=== PATIENT | female | born 1970 | race Caucasian/White ===

== ENCOUNTER 2019-05-02 15:53 | Outpatient (CLI) | payer MEDICARE, MEDICAID ==
--- NOTE | 2019-05-02 16:24 | MMO ---
Bilateral MAMMO Bilat Screen [facility]. CLINICAL HISTORY: Patient is 48 years old and is seen for screening. VIEWS: The views performed were: bilateral craniocaudal with tomosynthesis and bilateral mediolateral oblique with tomosynthesis. This study has been interpreted with the assistance of computer-aided detection. MAMMOGRAM FINDINGS: The breasts are almost entirely fat. There are no suspicious masses, suspicious calcifications, or new areas of architectural distortion. IMPRESSION: THERE IS NO MAMMOGRAPHIC EVIDENCE OF MALIGNANCY. A ROUTINE FOLLOW-UP MAMMOGRAM IN 1 YEAR IS RECOMMENDED. THE RESULTS OF THIS EXAM WERE SENT TO THE PATIENT. ACR BI-RADS Category 1 - Negative MAMMOGRAPHY NOTE: 1. A negative mammogram report should not delay a biopsy if a dominant of clinically suspicious mass is present. 2. Approximately 10% to 15% of breast cancers are not detected by mammography. 3. Adenosis and dense breasts may obscure an underlying neoplasm. Reported by: CORNELL VALENTINO MD Electonically Signed: [id number]
== END 2019-05-02 15:54 | disposition home or self-care (01) ==
LOC: BICMAMMO 15:53
PROVIDERS: ATTEND Family Medicine
DX: Z12.31 Encounter for screening mammogram for malignant neoplasm of breast (principal)
CPT/HCPCS: 77063; 77067

== ENCOUNTER 2019-06-27 02:35 | Inpatient (IN) | payer MEDICARE, MEDICAID ==
[2019-06-27] MEDS ORDERED: Fentanyl 100 MCG/2 ML VIAL ONE (04:19)
[2019-06-27] MEDS ORDERED: Ondansetron PF 4 MG/2 ML Vial IVP PRN ×2 (05:37→09:16)
[2019-06-27] MEDS ORDERED: Ondansetron ODT 4 MG TAB SL PRN (05:37)
[2019-06-27] MEDS ORDERED: Fentanyl 100 MCG/2 ML VIAL SLOW IVP PRN (05:38)
[2019-06-27] MEDS ORDERED: Hydrocortisone Sod Succ/PF 100 mg/2 ml Vial IVP SCH (07:00)
[2019-06-27] MEDS: Sodium Chloride 0.9% 1,000 ML IV SCH ×2 (07:17→15:14)
[2019-06-27 07:36] VITALS: BMI 23.0
[2019-06-27] MEDS ORDERED: Fleet Enema 133 ML BOT FS SCH (08:45)
[2019-06-27] MEDS ORDERED: Magnesium Citrate 300 ML BOT PO SCH (09:30)
[2019-06-27] MEDS ORDERED: D5 1/2 NS w/20 mEq KCL 1,000 ML IV SCH (09:30)
--- NOTE | 2019-06-27 10:54 | HP ---
CHIEF COMPLAINT: Possible bowel obstruction, history of gastric bypass. HISTORY OF PRESENT ILLNESS: The patient is a 48-year-old white female with an extensive psychiatric history. She has a history of laparoscopic gastric bypass in 2003. She presented to the [facility] last night because she was "not feeling right." She tells me she had not had a bowel movement about a week and a half, but this is not uncommon for her. She did vomit a couple of days ago. She denies abdominal pain. Upon my arrival into her room, her only complaint is her nasogastric tube was severely bothering her. Late at night, she had some plane abdominal imaging potentially revealing findings consistent with bowel obstruction. CT scan was obtained, which also mentioned dilated loops of bowel, potentially consistent with obstruction. She is noted to have a large volume of retained stool in her colon. When I was contacted at 3:30 this morning, she was presented to me as a gastric bypass patient with a bowel obstruction and I therefore agreed to admission to my service. PAST MEDICAL HISTORY: 1. History of morbid obesity. 2. Depression. 3. Anxiety. 4. History of tobacco abuse. 5. She believes she has bipolar disorder. She has a sleep abnormality, possible insomnia, history of suicide attempt. PAST SURGICAL HISTORY: 1. She has had 4 back surgeries, apparently performed here in town at [facility]. 2. She has had 2 spine stimulators placed. 3. She had a laparoscopic gastric bypass in 2003 in [place]. 4. She had a laparoscopic cholecystectomy in 1998. 5. She had a laparotomy for bowel perforation in 2007. She is not certain what was perforated or why. CURRENT MEDICATIONS: Include; 1. Temazepam. 2. Lyrica. 3. Seroquel. 4. Pristiq. 5. Wellbutrin. 6. Ranitidine. 7. Loratadine. 8. Fluticasone. 9. Black Cohosh. She gets her medical care in [place] from Dr. Street and she sees a psychiatrist in [place]. She also takes Tylenol with Codeine No. 4 and tells me she takes three of these per day. ALLERGIES: ALTHOUGH THERE IS A LONGER LIST, SHE TELLS THE ONLY MEDICATION SHE IS ALLERGIC TO IS REGLAN (METOCLOPRAMIDE). PERSONAL AND SOCIAL HISTORY: She is single with one child. She lives with her mother and father in [place]. She formerly smoked but tells me she quit in 2013. She does not drink alcohol. 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 She is disabled. REVIEW OF SYSTEMS: Otherwise, unremarkable. FAMILY HISTORY: Noncontributory. PHYSICAL EXAMINATION: VITAL SIGNS: Temperature is 98, pulse is 83, and blood pressure is 92/54. GENERAL: She is a well-developed, well-nourished, pleasant white female, who is only in distress associated with a nasogastric tube. She is alert and oriented x3 and cooperative. She is somewhat anxious/agitated, but she did much better after I removed her nasogastric tube. HEAD, EYES, EARS, NOSE, AND THROAT: Unremarkable. NECK: Supple. LUNGS: Clear to auscultation. CARDIAC: Regular rate and rhythm without murmur. ABDOMEN: Nondistended and surprisingly soft and nontender. She has normoactive bowel sounds. Well-healed midline incision. Rectal examination reveals a large volume of soft stool within the rectum. EXTREMITIES: Unremarkable. LABORATORY DATA: Her CBC from last night shows a white blood cell count of 5, hemoglobin of 12, normal differential. Chemistry profile shows no significant electrolyte abnormalities. She does have transaminitis and I note that she has a history of this before. Her AST and ALT and alkaline phosphatase are all elevated. Her total bilirubin is normal. I am not certain what her hepatitis status is. ASSESSMENT AND PLAN: The patient almost certainly does not have a small bowel obstruction based on her examination and findings. I would suspect that she is severely constipated. I will start a regimen of aggressive enemas and will give her a bottle of magnesium citrate and hopefully, she will be able to tolerate this. She is encouraged to ambulate and is already doing so. I do not think the nasogastric tube is necessary. I therefore removed it. May consider small bowel follow-through depending upon her course today. Job ID: [id number]
--- NOTE | 2019-06-27 13:43 | RAD ---
KUB: 06/27/2019 COMPARISON: 03/23/2018 HISTORY: Assess contrast location from prior exam FINDINGS: There is a generator overlying the left midabdomen posteriorly with an associated lead exte nding into the chest on the left. There is a generator posteriorly on the right with associated dorsal column stimulators terminating over the mid thoracic spine. Postoperative clips are noted in t he right upper quadrant, left upper quadrant, and left lower quadrant. There is significant stool within the colon from the level of the cecum to the level of the proximal descending colon. This stil l is relatively hyperdense, which may signify a mild degree of residual contrast media. There is no significant residual contrast media within the small bowel. There are multilevel postoperative pedicle screws at L4, L5, and S1. IMPRESSION: No residual contrast media within the small bowel is appreciated. Possible residual contr ast media within the colon associated with dense stool.
[2019-06-27] MEDS: Fleet Enema 133 ML BOT FS SCH ×3 (15:12→21:48)
[2019-06-27] MEDS ORDERED: buPROPion HCl 100 MG TAB PO SCH (16:15)
[2019-06-27] MEDS ORDERED: Acetaminophen 500 MG TAB PO PRN (19:29)
[2019-06-27] MEDS: Pregabalin 50 MG CAP PO SCH (20:36)
[2019-06-27] MEDS: Temazepam 15 MG CAP PO SCH (20:37)
[2019-06-27] MEDS: buPROPion HCl 100 MG TAB PO SCH (20:37)
[2019-06-27] MEDS: tiZANidine HCl 4 MG TAB PO SCH (20:37)
[2019-06-27] MEDS ORDERED: QUEtiapine Fumarate ER 150 MG TAB PO SCH (21:00)
[2019-06-27] MEDS ORDERED: VALBENAZINE TOSYLATE 80 MG PO SCH (21:00)
[2019-06-27] MEDS ORDERED: SILENOR 6 MG PO SCH (21:00)
[2019-06-27] MEDS ORDERED: Famotidine 20 MG TAB PO SCH (21:00)
[2019-06-27] MEDS: QUEtiapine Fumarate ER 50 MG TAB PO SCH (23:09)
[2019-06-27] MEDS ORDERED: QUEtiapine Fumarate ER 50 MG TAB PO SCH (23:15)
[2019-06-28] MEDS: Fleet Enema 133 ML BOT FS SCH ×6 (00:10→21:55)
[2019-06-28] MEDS: buPROPion HCl 100 MG TAB PO SCH ×3 (08:57→21:52)
[2019-06-28] MEDS: Pregabalin 50 MG CAP PO SCH ×2 (08:57→21:53)
--- NOTE | 2019-06-28 10:00 | PRG ---
DATE OF SERVICE: 06/28/2019 SUBJECTIVE: Ms. Gonzalez feels better. She is tolerating the clear liquids. She has had multiple bowel movements. She turned down the last enema. OBJECTIVE: VITAL SIGNS: She is afebrile. Vital signs are stable. ABDOMEN: Soft, nontender, nondistended. ASSESSMENT: Cecal and colon impaction. Doing better after enemas and magnesium citrate. PLAN: Switch over to MiraLAX. Advance to full liquid diet. Home tomorrow if still doing well. Job ID: [id number]
[2019-06-28] MEDS ORDERED: Polyethylene Glycol 3350 17 GM Packet PO SCH (10:30)
[2019-06-28] MEDS ORDERED: Thiamine 100 MG TAB PO SCH (12:00)
[2019-06-28 13:22] LABS: Vitamin D, 25 Hydroxy 9.4 ng/ml (> 30.0)
[2019-06-28] MEDS: tiZANidine HCl 4 MG TAB PO SCH (21:52)
[2019-06-28] MEDS: Temazepam 15 MG CAP PO SCH (21:53)
[2019-06-28] MEDS: QUEtiapine Fumarate ER 50 MG TAB PO SCH (21:54)
[2019-06-29] MEDS: Fleet Enema 133 ML BOT FS SCH ×4 (00:14→14:32)
--- NOTE | 2019-06-29 08:43 | DIS ---
DATE OF ADMISSION: 06/27/2019 DATE OF DISCHARGE: 06/29/2019 ADMITTED DIAGNOSES: 1. Fecal impaction. 2. History of gastric bypass. DISCHARGE DIAGNOSES: 1. Fecal impaction. 2. History of gastric bypass. 3. Vitamin D deficiency. PROCEDURES: None. CONDITION ON DISCHARGE: Improved. STAFF: Reza Diaz MD. FOLLOWUP: She is to follow up with Dr. Diaz in 2 weeks to follow up on lab results. BRIEF HISTORY: The patient was admitted with nausea, no abdominal pain, found to have cecal and fecal impaction. She had some laxatives done and enemas, and she felt better. She was given oral thiamin. Her thiamine level was checked, but that is pending at the time of discharge. Her vitamin D is very low. Her vitamin B12 was normal. She is discharged home. She says she will take a multivitamin as an outpatient. She is to see Dr. Diaz back to follow up on her labs. Her vitamin D is low. I sent her over a prescription for cholecalciferol to be taken 50,000 units once a week for three months, that was sent over to [facility]. She will return to see Dr. Diaz in 2 weeks. Job ID: [id number]
[2019-06-29] MEDS ORDERED: Polyethylene Glycol 3350 17 GM Packet PO SCH (09:00)
[2019-06-29] MEDS ORDERED: Bisacodyl 10 MG SUPP PR SCH (09:00)
[2019-06-29] MEDS: buPROPion HCl 100 MG TAB PO SCH (09:35)
[2019-06-29] MEDS: Pregabalin 50 MG CAP PO SCH (09:35)
[2019-06-29 11:56] VITALS: BP 102/69; TEMP 98.6
== END 2019-06-29 15:20 | disposition home or self-care (01) | DRG 390 ==
LOC: ERS 02:35 → SURG A 03:38
PROVIDERS: ADMIT Specialist; ATTEND Specialist
DX: K56.41 Fecal impaction (principal); E55.9 Vitamin D deficiency, unspecified; F41.9 Anxiety disorder, unspecified; F31.9 Bipolar disorder, unspecified; F43.10 Post-traumatic stress disorder, unspecified; F60.3 Borderline personality disorder; Z98.84 Bariatric surgery status; Z90.49 Acquired absence of other specified parts of digestive tract; Z88.8 Allergy status to other drugs, medicaments and biological substances; Z88.5 Allergy status to narcotic agent; Z79.899 Other long term (current) drug therapy; Z79.891 Long term (current) use of opiate analgesic
CPT/HCPCS: 36415; 74018; 82306; 82607; 84425; 96374; J1720; J2405; J3010

== ENCOUNTER 2022-01-28 21:35 | Inpatient (IN) | payer MEDICARE, MEDICAID ==
[2022-01-28 21:41] VITALS: BMI 23.8
[2022-01-28] MEDS ORDERED: Albuterol 200 PUFF (6.7GM INHALER) INH PRN (21:45)
[2022-01-28] MEDS ORDERED: Ondansetron PF 4 MG/2 ML Vial IVP PRN (21:45)
[2022-01-28] MEDS ORDERED: Ondansetron ODT 4 MG TAB SL PRN (21:45)
[2022-01-29] MEDS ORDERED: Ondansetron PF 4 MG/2 ML Vial IVP PRN (02:29)
[2022-01-29] MEDS ORDERED: Ondansetron ODT 4 MG TAB SL PRN (02:30)
[2022-01-29] MEDS ORDERED: Albuterol 200 PUFF (6.7GM INHALER) INH PRN ×2 (02:30→08:46)
[2022-01-29] MEDS ORDERED: Acetaminophen 325 MG TAB PO PRN (02:37)
[2022-01-29] MEDS ORDERED: Albuterol 200 PUFF (6.7GM INHALER) INH SCH ×2 (07:00)
[2022-01-29] MEDS ORDERED: Ondansetron ODT 4 MG TAB PO PRN (08:46)
[2022-01-29] MEDS ORDERED: hydrALAZINE 20 MG/ML VIAL SLOW IVP PRN (08:46)
[2022-01-29] MEDS ORDERED: Famotidine 20 MG TAB PO SCH (09:00)
[2022-01-29] MEDS ORDERED: [UNRECOGNIZED DRUG - OTHER] PO PRN (09:17)
[2022-01-29] MEDS ORDERED: ACETAMINOPHEN WITH CODEINE PO PRN (09:17)
[2022-01-29] MEDS: Enoxaparin Sodium 40 MG/0.4 ML SYRINGE SC SCH (09:39)
[2022-01-29] MEDS: Sodium Chloride 0.9% 1,000 ML IV SCH ×2 (09:39→20:34)
[2022-01-29] MEDS: Ascorbic Acid 500 mg Chewable Tablet PO SCH (09:40)
[2022-01-29] MEDS: Venlafaxine HCl XR 150 MG CAP PO SCH (09:40)
[2022-01-29] MEDS: Dexamethasone 10 MG/ML VIAL SLOW IVP SCH (09:40)
[2022-01-29] MEDS: Cholecalciferol (Vitamin D3) 400 UNITS TAB PO SCH (09:41)
[2022-01-29] MEDS: Zinc Sulfate 220 MG CAP PO SCH (09:41)
[2022-01-29] MEDS: Pregabalin 25 MG CAP PO SCH ×2 (09:41→20:30)
[2022-01-29 09:43] LABS: ALT (SGPT) 12 U/L (8-55); AST (SGOT) 14 U/L (5-34); Albumin 3.2 g/dL (3.5-5.0); Alkaline Phosphatase 67 U/L (40-110); Bilirubin, Direct 0.1 mg/dL (0.1-0.3); Bilirubin, Total Less than 0.2 mg/dL (0.2-1.2); Protein, Total 5.6 g/dL (6.0-8.3)
[2022-01-29] MEDS: Acetaminophen/Codeine 30-300mg Tablet PO PRN ×2 (09:48→14:08)
[2022-01-29] MEDS ORDERED: Non-Formulary Item 1 EACH (Desvenlafaxine [Desvenlafaxine Er] 100 MG Tab.Er.24h) PO SCH (10:00)
[2022-01-29] MEDS ORDERED: REMDESIVIR 200 MG in Sodium Chloride 0.9% 250 ML 210 ML IV SCH (11:00)
[2022-01-29] MEDS: Temazepam 15 MG CAP PO SCH (20:31)
[2022-01-29] MEDS: Benzonatate 100 MG CAP PO PRN (20:31)
[2022-01-29] MEDS: Acetaminophen 500 MG TAB PO PRN (20:31)
[2022-01-29] MEDS ORDERED: Temazepam 15 MG CAP PO SCH (21:00)
[2022-01-30] MEDS: Amitriptyline HCl 25 MG TAB PO SCH ×3 (08:16→19:45)
[2022-01-30] MEDS: REMDESIVIR 100 MG in Sodium Chloride 0.9% 250 ML 230 ML IV SCH (08:16)
[2022-01-30] MEDS: Enoxaparin Sodium 40 MG/0.4 ML SYRINGE SC SCH (08:16)
[2022-01-30] MEDS: Venlafaxine HCl XR 150 MG CAP PO SCH (08:16)
[2022-01-30] MEDS: Ascorbic Acid 500 mg Chewable Tablet PO SCH (08:16)
[2022-01-30] MEDS: Cholecalciferol (Vitamin D3) 400 UNITS TAB PO SCH (08:17)
[2022-01-30] MEDS: Zinc Sulfate 220 MG CAP PO SCH (08:17)
[2022-01-30] MEDS: Pregabalin 50 MG CAP PO SCH ×2 (08:17→19:45)
[2022-01-30] MEDS: Benzonatate 100 MG CAP PO PRN (08:17)
[2022-01-30] MEDS: Acetaminophen/Codeine 30-300mg Tablet PO PRN ×2 (08:17→13:33)
[2022-01-30] MEDS: Dexamethasone 10 MG/ML VIAL SLOW IVP SCH (08:18)
[2022-01-30 10:23] LABS: ALT (SGPT) 11 U/L (8-55); AST (SGOT) 18 U/L (5-34); Albumin 3.4 g/dL (3.5-5.0); Alkaline Phosphatase 71 U/L (40-110); Anion Gap 14 mmol/L (10-20); BUN (Urea Nitrogen) 6 mg/dL (9.8-20.1); Bilirubin, Direct 0.1 mg/dL (0.1-0.3); Bilirubin, Total Less than 0.2 mg/dL (0.2-1.2); Calc. Creatinine Clearance 105 mL/min (70-130); Calcium 8.1 mg/dL (7.8-10.44); Carbon Dioxide 18 mmol/L (22-29); Chloride 108 mmol/L (98-107); Globulin 2.6 g/dL (2.4-3.5); Glucose 93 mg/dL (70-105); Potassium 3.3 mmol/L (3.5-5.1); Sodium 137 mmol/L (136-145)
[2022-01-30] MEDS: Ondansetron PF 4 MG/2 ML Vial IVP PRN (10:28)
[2022-01-30 11:03] LABS: #Eosinphils 0.1 thou/uL (0.0-0.7); #Lymphocytes 1.3 thou/uL (1.20-3.40); #Monocytes 0.4 thou/uL (0.11-0.59); #Neutrophils 3.1 thou/uL (1.40-6.50); %Basophils 0.5 % (0.0-1.0); %Lymphocytes 26.8 % (21.0-51.0); %Monocytes 7.3 % (0.0-10.0); %Neutrophils 63.5 % (42.0-75.0); Hemoglobin 12.3 g/dL (12.0-16.0); MDiff Complete? YES; Macrocytosis SLIGHT = 6-15 cells (100X) (0-5/hpf); Mean Corpuscular HGB CONC 32.3 g/dL (32.0-36.0); Mean Corpuscular Hemoglobin 34.1 pg (27.0-31.0); Mean Platelet Volume 8.7 fL (7.4-10.4); Platelet Count 131 thou/uL (130-400); Platelet Morphology Comment Appears Adequate; RBC Distribution Width 12.1 % (11.5-14.5); Red Blood Cell (RBC) Count 3.59 mill/uL (4.20-5.40); White Blood Cell (WBC) Count 4.9 thou/uL (4.8-10.8)
[2022-01-30] MEDS: diphenhydrAMINE 25 MG CAP PO PRN (16:21)
[2022-01-30] MEDS ORDERED: Potassium Chloride 20 MEQ TAB PO SCH (16:30)
[2022-01-30] MEDS: Temazepam 15 MG CAP PO SCH (19:44)
[2022-01-30] MEDS: Acetaminophen 500 MG TAB PO PRN (19:45)
[2022-01-31 06:31] LABS: #Eosinphils 0.1 thou/uL (0.0-0.7); #Lymphocytes 2.5 thou/uL (1.20-3.40); #Monocytes 0.7 thou/uL (0.11-0.59); #Neutrophils 1.7 thou/uL (1.40-6.50); %Basophils 0.9 % (0.0-1.0); %Eosinophils 2.4 % (0.0-10.0); %Lymphocytes 49.1 % (21.0-51.0); %Monocytes 14.2 % (0.0-10.0); %Neutrophils 33.4 % (42.0-75.0); Hemoglobin 11.6 g/dL (12.0-16.0); Mean Corpuscular HGB CONC 33.4 g/dL (32.0-36.0); Mean Corpuscular Hemoglobin 34.9 pg (27.0-31.0); Mean Platelet Volume 8.9 fL (7.4-10.4); Platelet Count 137 thou/uL (130-400); RBC Distribution Width 11.9 % (11.5-14.5); Red Blood Cell (RBC) Count 3.34 mill/uL (4.20-5.40); White Blood Cell (WBC) Count 5.1 thou/uL (4.8-10.8)
[2022-01-31 06:50] LABS: ALT (SGPT) 10 U/L (8-55); AST (SGOT) 15 U/L (5-34); Albumin 3.3 g/dL (3.5-5.0); Alkaline Phosphatase 62 U/L (40-110); Anion Gap 12 mmol/L (10-20); BUN (Urea Nitrogen) 11 mg/dL (9.8-20.1); Bilirubin, Direct 0.1 mg/dL (0.1-0.3); Bilirubin, Total Less than 0.2 mg/dL (0.2-1.2); Calc. Creatinine Clearance 89 mL/min (70-130); Calcium 8.3 mg/dL (7.8-10.44); Carbon Dioxide 20 mmol/L (22-29); Chloride 112 mmol/L (98-107); Glucose 85 mg/dL (70-105); Potassium 3.5 mmol/L (3.5-5.1); Protein, Total 5.8 g/dL (6.0-8.3); Sodium 140 mmol/L (136-145)
[2022-01-31] MEDS: Pregabalin 50 MG CAP PO SCH ×2 (09:50→20:02)
[2022-01-31] MEDS: Cholecalciferol (Vitamin D3) 400 UNITS TAB PO SCH (09:50)
[2022-01-31] MEDS: Ascorbic Acid 500 mg Chewable Tablet PO SCH (09:50)
[2022-01-31] MEDS: Venlafaxine HCl XR 150 MG CAP PO SCH (09:50)
[2022-01-31] MEDS: Enoxaparin Sodium 40 MG/0.4 ML SYRINGE SC SCH (09:51)
[2022-01-31] MEDS: Zinc Sulfate 220 MG CAP PO SCH (09:51)
[2022-01-31] MEDS: REMDESIVIR 100 MG in Sodium Chloride 0.9% 250 ML 230 ML IV SCH (09:51)
[2022-01-31] MEDS: Acetaminophen/Codeine 30-300mg Tablet PO PRN ×2 (10:01→17:42)
[2022-01-31] MEDS: Dexamethasone 10 MG/ML VIAL SLOW IVP SCH (10:01)
[2022-01-31] MEDS: Ondansetron PF 4 MG/2 ML Vial IVP PRN (17:42)
[2022-01-31] MEDS: Temazepam 15 MG CAP PO SCH (20:01)
[2022-01-31] MEDS: diphenhydrAMINE 25 MG CAP PO PRN (20:02)
[2022-01-31] MEDS: Amitriptyline HCl 25 MG TAB PO SCH (20:02)
[2022-02-01 06:51] LABS: ALT (SGPT) 9 U/L (8-55); AST (SGOT) 10 U/L (5-34); Albumin 3.2 g/dL (3.5-5.0); Alkaline Phosphatase 61 U/L (40-110); Bilirubin, Direct 0.1 mg/dL (0.1-0.3); Bilirubin, Total 0.2 mg/dL (0.2-1.2); Protein, Total 5.6 g/dL (6.0-8.3)
[2022-02-01] MEDS: Cholecalciferol (Vitamin D3) 400 UNITS TAB PO SCH (09:25)
[2022-02-01] MEDS: Pregabalin 50 MG CAP PO SCH (09:25)
[2022-02-01] MEDS: Enoxaparin Sodium 40 MG/0.4 ML SYRINGE SC SCH (09:25)
[2022-02-01] MEDS: Venlafaxine HCl XR 150 MG CAP PO SCH (09:26)
[2022-02-01] MEDS: Zinc Sulfate 220 MG CAP PO SCH (09:26)
[2022-02-01] MEDS: Ascorbic Acid 500 mg Chewable Tablet PO SCH (09:26)
[2022-02-01] MEDS: Dexamethasone 10 MG/ML VIAL SLOW IVP SCH (09:26)
[2022-02-01] MEDS: Acetaminophen/Codeine 30-300mg Tablet PO PRN ×2 (09:40→16:45)
[2022-02-01] MEDS: diphenhydrAMINE 25 MG CAP PO PRN (09:41)
[2022-02-01] MEDS: REMDESIVIR 100 MG in Sodium Chloride 0.9% 250 ML 230 ML IV SCH (10:33)
[2022-02-01] MEDS: Ondansetron PF 4 MG/2 ML Vial IVP PRN (16:46)
[2022-02-01 16:55] VITALS: BP 137/87; TEMP 98.7
== END 2022-02-01 18:07 | disposition home or self-care (01) | DRG 177 ==
LOC: T4-B 21:37
PROVIDERS: ADMIT Family Medicine; ATTEND Hospitalist
PROC: 8E0ZXY6 Isolation (ICD-10-PCS; principal; 2022-01-28)
PROC: XW033E5 Introduction of Remdesivir Anti-infective into Peripheral Vein, Percutaneous Approach, New Technology Group 5 (ICD-10-PCS; 2022-01-29)
DX: U07.1 COVID-19 (principal); J12.82 Pneumonia due to coronavirus disease 2019; J96.01 Acute respiratory failure with hypoxia; G89.4 Chronic pain syndrome; F31.9 Bipolar disorder, unspecified; D69.6 Thrombocytopenia, unspecified; F41.9 Anxiety disorder, unspecified; Z28.310 Unvaccinated for COVID-19; Z90.49 Acquired absence of other specified parts of digestive tract; Z98.84 Bariatric surgery status; Z79.899 Other long term (current) drug therapy; Z88.8 Allergy status to other drugs, medicaments and biological substances; Z87.891 Personal history of nicotine dependence
CPT/HCPCS: 36415; 71045; 80048; 80053; 80076; 85025; 85379; 86140; J0248; J1100; J1650; J2405; J7050